=== PATIENT | male | born 1970 | race Caucasian/White ===

== ENCOUNTER 2017-01-27 18:39 | Emergency (ER) | payer OTHER ==
[~2017-01-27] VITALS: Ht 175.3 cm; Wt 112.4 kg
[~2017-01-27 18:39] MED LIST: ASPI81TA28 PO; HYDR25TA4 PO; LEVO-459 PO; MULT-506 PO; OMEG10007 PO; SERT50TA PO
[2017-01-27 18:44] VITALS: TEMP 36.7; Ht 175.3 cm; Wt 112.4 kg
[2017-01-27 19:34] LABS: HEMATOCRIT 41.7 % (42-52); MEAN CELL VOLUME 95.6 fL (80-100); MEAN CORPUSCULAR HEMOGLOBIN 34.6 pg (25-34); MEAN CORPUSCULAR HGB CONC 36.2 g/dl (32-36); MEAN PLATELET VOLUME 10.4 fL (7.4-10.4); PLATELET COUNT 246 K/uL (130-400); RED BLOOD COUNT 4.36 M/uL (4.7-6.1); WHITE BLOOD COUNT 9.44 K/uL (4.8-10.8)
[2017-01-27] MEDS ORDERED: OXYC1TAB3 PO (19:36)
--- NOTE | 2017-01-27 19:46 | DIAGNOSTIC IMAGING REPORT ---
HEAD CT NONCONTRAST CT DOSE: 614.27 mGy.cm HISTORY: Neuropathy left face numb TECHNIQUE: Multiaxial CT images of the head were performed without the use of intravenous contrast. Comparison: None. Findings: The paranasal sinuses and mastoid air cells are clear. The calvarium and skull base are intact. The ventricles and sulci are within normal limits. There is no mass, hematoma, midline shift, or acute infarct. Impression: No acute intracranial abnormality. Electronically signed by: Anthony Sim M.D. 01/27/2017 7:44 PM Dictated Date/Time: 01/27/2017 7:43 PM
[2017-01-27 19:50] LABS: BUN/CREATININE RATIO 10.5 (10-20); CALCIUM 9.4 mg/dl (8.5-10.1); CREATININE 0.81 mg/dl (0.60-1.40); POTASSIUM 3.2 mmol/L (3.5-5.1)
[2017-01-27 20:04] LABS: THYROID STIMULATING HORMONE 2.64 uIu/ml (0.300-4.500)
--- NOTE | 2017-01-27 20:23 | EMERGENCY ROOM VISIT NOTE ---
History Report prepared by Deo: Mo Boudreaux Under the Supervision of: Dr. Omar Rust M.D. First contact with patient: 18:51 Chief Complaint: NEURO SYMPTOMS Stated Complaint: FACE NUMB, MOUTH/EYE FEEL STRANGE, SLIGHT HEADACHE Nursing Triage Summary: Pt states, "I'm not sure if I am having an allergic rxn. I had an eye exam and they dilated my pupils. My tongue got numb yesterday. This morning it's like my mouth and smile aren't matching. I have a little bit of a h/a." History of Present Illness The patient is a 46 year old male who presents to the Emergency Room with complaints of persistent neurologic symptoms since yesterday. The patient had eye drops to dilate his pupils placed at 0800 yesterday. The patient's tongue became numb bilaterally around 1200 yesterday. This morning his tongue is still numb, as well as the left side of his face. The patient notes that it feels strange when he smiles and chews his food. He also notes trouble blinking the left eye. The patient has some pain in his left ear. He denies and weakness or numbness of the extremities. He denies any significant past medical history. He does not get cold sores and denies any significant rashes other than intermittent yeasts under his left armpit. The patient spends a lot of time outdoors. He denies any tick bites but has found ticks on himself. Source of History: patient Onset: yesterday Position: tongue Quality: numbness Timing: other (persistent) Associated Symptoms: No rash, No weakness Review of Systems See HPI for pertinent positives & negatives. A total of 10 systems reviewed and were otherwise negative. Past Medical & Surgical Medical Problems: (1) Morbid Obesity (2) Plantar Fibromatosis (3) Polychondritis Family History Patient reports no known family medical history. Social History Smoking Status: Current Every Day Smoker Alcohol Use: none Drug Use: none Marital Status: Housing Status: lives with significant other Current/Historical Medications Scheduled Aspirin (Aspirin Ec), 81 MG PO DAILY Doxycycline Hyclate (Vibramycin), 100 MG PO BID Fish Oil (Fourmile-3), 1 CAP PO DAILY Hydrochlorothiazide (Hctz), 25 MG PO QAM Multivitamin (Multivitamin), 1 TAB PO DAILY Prednisone (Prednisone), 2 TAB PO DAILY Valacyclovir Hcl (Valtrex), 1 TAB PO TID Scheduled PRN Oxycodone Immediate Rel Tab (Roxicodone Ir), 5 MG PO QPM PRN for Pain Allergies Coded Allergies: No Known Allergies (Unverified , 05/25/15) Physical Exam Vital Signs Date Time Temp Pulse Resp B/P Pulse Ox O2 Delivery O2 Flow Rate FiO2 01/27/17 21:05 68 18 135/82 98 Room Air 01/27/17 20:00 71 18 135/84 97 Room Air 01/27/17 18:44 36.7 76 18 155/93 98 Room Air Physical Exam GENERAL: Patient is in no acute distress. HEENT: No acute trauma, normocephalic atraumatic, mucous membranes moist, no nasal congestion, no scleral icterus, left TM partially occlude by wax but clear , no facial rash, no adenopathy about the left pinna. NECK: No stridor, no adenopathy, no meningismus, trachea is midline. LUNGS: Clear to auscultation bilaterally, no wheeze, no rhonchi, breath sounds equal. HEART: Without murmurs gallops or rubs, regular rate and rhythm. ABDOMEN: Soft, nontender, bowel sounds positive, no hernias, no peritonitis. EXTREMITIES: No cyanosis or edema, full range of motion of all the joints without pain or difficulty, no signs for acute trauma. NEUROLOGIC: Awake alert and oriented x3 , no focal extremity sensorimotor deficits, no pronator drift, left facial droop involving left frontalis muscle, difficulty blinking his left eye, tongue protrudes midline, no speech slur. SKIN: No rash, no jaundice, no diaphoresis. Medical Decision & Procedures ER Provider Diagnostic Interpretation: CT results as stated below per my review and radiologist interpretation: HEAD CT NONCONTRAST CT DOSE: 614.27 mGy.cm HISTORY: Neuropathy left face numb TECHNIQUE: Multiaxial CT images of the head were performed without the use of intravenous contrast. Comparison: None. Findings: The paranasal sinuses and mastoid air cells are clear. The calvarium and skull base are intact. The ventricles and sulci are within normal limits. There is no mass, hematoma, midline shift, or acute infarct. Impression: No acute intracranial abnormality. Electronically signed by: Anthony Sim M.D. 01/27/2017 7:44 PM Dictated Date/Time: 01/27/2017 7:43 PM Laboratory Results 01/27/17 19:25 01/27/17 19:25 Test 01/27/17 19:25 Red Blood Count 4.36 M/uL (4.7-6.1) Mean Corpuscular Volume 95.6 fL (80-100) Mean Corpuscular Hemoglobin 34.6 pg (25-34) Mean Corpuscular Hemoglobin Concent 36.2 g/dl (32-36) RDW Standard Deviation 43.7 fL (36.4-46.3) RDW Coefficient of Variation 12.5 % (11.5-14.5) Mean Platelet Volume 10.4 fL (7.4-10.4) Anion Gap 6.0 mmol/L (3-11) Est Creatinine Clear Calc Drug Dose 140.9 ml/min Estimated GFR () 123.5 Estimated GFR (Non- 106.6 BUN/Creatinine Ratio 10.5 (10-20) Calcium Level 9.4 mg/dl (8.5-10.1) Thyroid Stimulating Hormone (TSH) 2.640 uIu/ml (0.300-4.500) Rapid Plasma Reagin NONREACTIVE (NONREACT) Lyme Disease IgG Antibody NEG (NEG) Laboratory results reviewed by me. Medications Administered Medications (Trade) Dose Ordered Sig/Jen Route Start Time Stop Time Status Last Admin Dose Admin Valacyclovir HCl (Valtrex Tab) 1,000 mg NOW ONCE PO 01/27/17 21:15 01/27/17 21:16 DC 01/27/17 21:11 1,000 MG Doxycycline Hyclate (Vibramycin Cap) 100 mg ONE ONCE PO 01/27/17 21:15 01/27/17 21:16 DC 01/27/17 21:10 100 MG Prednisone (PredniSONE TAB) 40 mg NOW STAT PO 01/27/17 21:03 01/27/17 21:05 DC 01/27/17 21:10 40 MG Artificial Tears (Lacri-Lube Oph Oint) 1 appln NOW ONCE OP 01/27/17 21:15 01/27/17 21:16 DC 01/27/17 21:11 1 APPLN ECG Indication: other (neurologic symptoms) Rate (beats per minute): 72 Rhythm: sinus rhythm Findings: no acute ischemic change, other (no dysrhythmia) ED Course 1851: The patient was evaluated in room B4b. A complete history and physical exam was performed. 2057: Updated the patient. 2102: Prednisone 40 mg PO. 2109: Reevaluated the patient. Discussed results and discharge instructions: He verbalized understanding and agreement. The patient will be prepared for discharge. 2114: Artificial Tears 1 application OP, Vibramycin 100 mg PO, Valtrex 1000 mg PO. Medical Decision Differential diagnosis includes lyme disease, stroke, Wheatley's palsy, herpes zoster, electrolyte imbalance, nerve impingement, thyroid disorder. There is no leukocytosis or worrisome anemia. No significant electrolyte abnormality or kidney failure. Brain CT shows no acute bleed or mass effect. EKG shows a sinus rhythm, there are some PVCs, no concerning rhythm disturbance. Lyme disease testing is equivocal. Syphilis testing is negative. On exam, the patient does not have any focal extremity neurologic findings. 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 The patient received oral Valtrex, oral prednisone and was given a tube of Lacri -Lube to keep the left eye moist. He is being started on doxycycline for the possibility of Lyme and the first dose was given here orally. The patient will follow with his doctor's office for further evaluation and can return here if worsening. He was reassured that he had not had a stroke. Impression Primary Impression: Wheatley's palsy Scribe Attestation The scribe's documentation has been prepared under my direction and personally reviewed by me in its entirety. I confirm that the note above accurately reflects all work, treatment, procedures, and medical decision making performed by me. Departure Information Dispostion Home / Self-Care Prescriptions Doxycycline Hyclate (VIBRAMYCIN) 100 Mg Cap 100 MG PO BID for 28 Days, #56 CAP Prov: Omar Rust M.D. 01/27/17 Prednisone (Prednisone) 20 Mg Tab 2 TAB PO DAILY for 5 Days, #10 TAB Prov: Omar Rust M.D. 01/27/17 Valacyclovir Hcl (VALTREX) 1 Gm Tab 1 TAB PO TID for 7 Days, #21 TAB Prov: Omar Rust M.D. 01/27/17 Referrals Jose Jose, D.O. (PCP) Forms HOME CARE DOCUMENTATION FORM, IMPORTANT VISIT INFORMATION, WORK / SCHOOL INSTRUCTIONS Patient Instructions ED [place] [facility], My [facility], [facility] [place] Additional Instructions eye lubricating drops every hour during the day follow with your eye doctor for recheck of the eye lacrilube ointment to the eye before bed valtrex 3x per day for 1 week doxycycline 2x per day for 28 days prednisone daily for 5 more days follow with ramya nuñez for recheck in a few days
[2017-01-27 20:30] LABS: LYME DISEASE AB IGG NEG (NEG)
[2017-01-27 20:36] LABS: LYME DISEASE AB IGM EQUIVOCAL (NEG)
[2017-01-27 21:05] VITALS: BP 135/82; PULSE 68; O2SAT 98
[2017-01-27] MEDS ORDERED: DOXY100C PO (21:09)
[2017-01-27] MEDS ORDERED: VALA1TAB31 PO (21:09)
[2017-01-27] MEDS ORDERED: PRED20TA PO (21:09)
[2017-01-27] MEDS ORDERED: ARTIFICIAL TEARS OP OINT 3.5 GM TUBE OP ONE (21:15)
[2017-01-27] MEDS ORDERED: DOXYCYCLINE HYCLATE 100 MG CAP PO ONE (21:15)
[2017-01-27 23:48] LABS: RAPID PLASMA REAGIN NONREACTIVE (NONREACT)
[2017-02-02 22:43] LABS: 18KDIGG BAND NONREACTIVE (NONREACTIVE); 23KDIGG BAND REACTIVE (NONREACTIVE); 23KDIGM BAND REACTIVE (NONREACTIVE); 28KDIGG BAND NONREACTIVE (NONREACTIVE); 30KDIGG BAND NONREACTIVE (NONREACTIVE); 39KDIGG BAND NONREACTIVE (NONREACTIVE); 39KDIGM BAND NONREACTIVE (NONREACTIVE); 41KDIGG BAND REACTIVE (NONREACTIVE); 41KDIGM BAND NONREACTIVE (NONREACTIVE); 45KDIGG BAND NONREACTIVE (NONREACTIVE); 58KDIGG BAND NONREACTIVE (NONREACTIVE); 66KDIGG BAND REACTIVE (NONREACTIVE); 93KDIGG BAND NONREACTIVE (NONREACTIVE)
== END 2017-01-27 21:21 | disposition home or self-care (01) ==
LOC: C.EDB 18:41
DX: G51.0 Bell's palsy (principal); F17.200 Nicotine dependence, unspecified, uncomplicated; Z79.82 Long term (current) use of aspirin; Z79.899 Other long term (current) drug therapy